=== PATIENT | female | born 1970 ===

== ENCOUNTER 2017-08-29 05:31 | Emergency (ER) | payer OTHER ==
[2017-08-29 05:47] VITALS: BMI 34.3
[2017-08-29] MEDS ORDERED: Sodium Chloride 0.9% 1,000 ML IV STA (05:49)
[2017-08-29] MEDS ORDERED: Dexamethasone 10 MG in Sodium Chloride 0.9% 50 ML IV STA (05:49)
--- NOTE | 2017-08-29 06:11 | ED PDOC ---
HPI: CCC, URI, Sore Throat Time Seen by Provider: 08/29/17 05:33 Chief Complaint (Nursing): ENT Problem Chief Complaint (Provider): Sore throat History Per: Patient History/Exam Limitations: no limitations Onset/Duration Of Symptoms: Days (3 weeks) Current Symptoms Are (Timing): Still Present Location Of Pain: Throat Associated Symptoms: denies: Fever Severity: Mild Additional History Per: Patient Additional Complaint(s): 47 y/o female with a hx of Lupus, fibromyalgia, and HTN, c/o sore throat for 3 weeks. Patient was seen at [facility] for the same complaint and reports finishing his course of amoxicillin. Patient notes no improvement of symptoms and now c/o having trouble swallowing with vocal changes. Patient had fever before, but denies fever at this moment. Past Medical History Reviewed: Historical Data, Nursing Documentation, Vital Signs Vital Signs: Last Vital Signs Temp 98.9 F 08/29/17 05:47 Pulse 95 H 08/29/17 05:47 Resp 16 08/29/17 05:47 BP 150/100 H 08/29/17 05:47 Pulse Ox 100 08/29/17 06:51 - Medical History PMH: Arthritis ("PSORIATIC ARTHRITIS"), Depression, Fibromyalgia, HTN, Rheumatoid Arthritis Denies: Chronic Kidney Disease - Family History Family History: States: No Known Family Hx - Social History Current smoker - smoking cessation education provided: No Drugs: Denies - Immunization History Hx Tetanus Toxoid Vaccination: No Hx Influenza Vaccination: No Hx Pneumococcal Vaccination: No - Home Medications Home Medications: Ambulatory Orders Medication Instructions Recorded DULoxetine [Cymbalta] 30 mg PO DAILY 04/04/17 Gabapentin [Neurontin] 300 mg PO HS 04/04/17 Hydroxychloroquine Sulfate 200 mg PO Q12 04/04/17 Lisinopril [Zestril] 20 mg PO DAILY 04/04/17 Meloxicam 7.5 mg PO DAILY 04/04/17 Ketorolac Tromethamine [Toradol] 10 mg PO TID PRN #15 tab 08/20/17 - Allergies Allergies/Adverse Reactions: Allergies Allergy/AdvReac Type Severity Reaction Status Date / Time acetaminophen [From Vicodin] AdvReac Severe VOMITING Verified 08/29/17 05:47 hydrocodone bitartrate AdvReac Severe VOMITING Verified 08/29/17 05:47 [From Vicodin] Review of Systems ROS Statement: Except As Marked, All Systems Reviewed And Found Negative Constitutional: Negative for: Fever ENT: Positive for: Throat Pain, Other (Throuble swallowing) Physical Exam - Reviewed Nursing Documentation Reviewed: Yes Vital Signs Reviewed: Yes - Physical Exam Appears: Positive for: Well, Non-toxic, No Acute Distress Head Exam: Positive for: ATRAUMATIC, NORMAL INSPECTION, NORMOCEPHALIC Skin: Positive for: Normal Color, Warm, DRY ENT: Positive for: Tonsillar Exudate, Tonsillar Swelling (Bilateral 3+ tonsils) , Other (Dry mucous membrane) Neck: Positive for: Supple Cardiovascular/Chest: Positive for: Regular Rate, Rhythm. Negative for: Murmur Respiratory: Positive for: Normal Breath Sounds. Negative for: Rales, Rhonchi, Wheezing Lymphatic: Positive for: Adenopathy (Bilateral anterior cervical adenapathy) Neurologic/Psych: Positive for: Alert, Oriented - ECG O2 Sat by Pulse Oximetry: 100 (RA) Pulse Ox Interpretation: Normal Medical Decision Making Medical Decision Making: Impression: * 47 y/o female c/o sore throat for 3 weeks. Plans: * Blood labs * Toradol * IV fluids * Serology DDx: Previous diagnosis of tonsillitis. 07:00. Patient turned over to Sr. Mary. Scribe Attestation: Documented by Anika Hernandez, acting as a scribe for Kaden Pederson. Provider Scribe Attestation: All medical record entries made by the Scribe were at my direction and personally dictated by me. I have reviewed the chart and agree that the record accurately reflects my personal performance of the history, physical exam, medical decision making, and the department course for this patient. I have also personally directed, reviewed, and agree with the discharge instructions and disposition. Disposition - Clinical Impression Clinical Impression: Tonsillitis - Patient ED Disposition Is Patient to be Admitted: Transfer of Care - Disposition Disposition: Transfer of Care Disposition Time: 07:00 Condition: FAIR Forms: [employer] ([place]i) Patient Signed Over To: Donna Mary
--- NOTE | 2017-08-29 07:01 | ED PDOC ---
- Laboratory Results Result Diagrams: 08/29/17 06:05 08/29/17 06:05 - ECG O2 Sat by Pulse Oximetry: 100 (RA) Pulse Ox Interpretation: Normal Medical Decision Making Medical Decision Makin:00 Patient signed over from Kaden Pederson MD pending CT, labs, and reevaluation. Scribe Attestation: Documented by Maria Eugenia Richardson, acting as a scribe for Donna Mary MD. Provider Scribe Attestation: All medical record entries made by the Scribe were at my direction and personally dictated by me. I have reviewed the chart and agree that the record accurately reflects my personal performance of the history, physical exam, medical decision making, and the department course for this patient. I have also personally directed, reviewed, and agree with the discharge instructions and disposition. 10.30a CT report reviewed. Labs reviewed. Patient made aware of results. She feels better. Will discharge. Disposition Doctor Will See Patient In The: Office Counseled Patient/Family Regarding: Diagnosis, Need For Followup, Rx Given (lid) - Clinical Impression Clinical Impression: Tonsillitis - POA Present On Arrival: None - Disposition Referrals: Sunil Trivedi MD [Staff Provider] - Disposition: Routine/Home Disposition Time: 10:30 Condition: IMPROVED Prescriptions: Lidocaine 2% Viscous 10 ml MM Q4H PRN #1 bottle PRN Reason: Sore Throat Instructions: Tonsillitis (ED) Forms: [employer] ([place]er)
[2017-08-29 07:15] LABS: BASO # 0.1 K/uL (0.0-0.2); BASO % 0.5 % (0.0-2.0); EOS % 0.3 % (0.0-4.0); HEMATOCRIT 34.4 % (34.0-47.0); LYMPH # 2.4 K/uL (1.0-4.3); LYMPH % 21.2 % (20.0-40.0); MEAN CELL VOLUME 79.9 fl (81.0-99.0); MEAN CORPUSCULAR HEMOGLOBIN 25.7 pg (27.0-31.0); MEAN CORPUSCULAR HGB CONC 32.1 g/dL (33.0-37.0); MEAN PLATELET VOLUME 7.6 fl (7.2-11.7); MONO # 0.8 K/uL (0.0-0.8); MONO % 7.1 % (0.0-10.0); NEUT % 70.9 % (50.0-75.0); NRBC % 0.1 % (0.0-0.0); RED CELL DISTRIBUTION WIDTH 15.9 % (11.5-14.5); WHITE BLOOD COUNT 11.3 K/uL (4.8-10.8)
[2017-08-29 07:18] LABS: ALB/GLOB RATIO 1.1 (1.0-2.1); ALKALINE PHOSPHATASE 100 U/L (38-126); ALT/SGPT 19 U/L (9-52); AST/SGOT 40 U/L (14-36); BILIRUBIN,TOTAL 0.6 mg/dl (0.2-1.3); BLOOD UREA NITROGEN 12 mg/dl (7-17); CARBON DIOXIDE 23 mmol/L (22-30); CHLORIDE 106 mmol/L (98-107); GFR AFRICAN-AMERICAN > 60; GLUCOSE,RANDOM 99 mg/dL (65-105); POTASSIUM 4.1 MMOL/L (3.6-5.0); SODIUM 140 mmol/l (132-148); TOTAL PROTEIN 8.2 G/DL (6.3-8.2)
[2017-08-29 07:43] LABS: CALCIUM 8.8 mg/dL (8.4-10.2)
[2017-08-29] MEDS ORDERED: Sodium Chloride 0.9% 50 ML IV ONE (08:41)
[2017-08-29] MEDS ORDERED: Iohexol 300 100 ML IJ ONE (08:41)
--- NOTE | 2017-08-29 09:25 | CT ---
PROCEDURE: CT NECK WITH CONTRAST HISTORY: throat pain COMPARISON: None TECHNIQUE: CT of the neck with intravenous contrast. Coronal and sagittal reformats generated. Intravenous contrast dose: 80 cc of Omni 300 Radiation dose: DLP 377 mGy-cm This CT exam was performed using one or more of the following dose reduction techniques: Automated exposure control, adjustment of the mA and/or kV according to patient size, and/or use of iterative reconstruction technique. FINDINGS: NASOPHARYNX: Unremarkable. SUPRAHYOID NECK: There is swelling of the palatine tonsils. There is no evidence of tonsillar abscess. INFRAHYOID NECK: Unremarkable larynx, hypopharynx, and supraglottic space. Vocal cords intact. No evidence of epiglottitis MASS: None. GLANDS: Parotid and submandibular glands unremarkable. Normal size thyroid gland, without nodule. LYMPH NODES: There is mild bilateral cervical adenopathy. CERVICAL SPINE: No fracture or focal lesion. VASCULAR STRUCTURES: Unremarkable. OTHER FINDINGS: None. IMPRESSION: Swelling of the palatine tonsils with no evidence of abscess. No evidence of epiglottitis. Mild bilateral cervical adenopathy
[2017-08-29 10:42] VITALS: BP 135/92; PULSE 86; RESP 18; TEMP 98.2
[2017-08-29 10:53] VITALS: O2SAT 100
== END 2017-08-29 11:09 | disposition home or self-care (01) ==
LOC: H.ER 05:31
DX: J03.90 Acute tonsillitis, unspecified (principal); F32.9 Major depressive disorder, single episode, unspecified; I10 Essential (primary) hypertension; M06.9 Rheumatoid arthritis, unspecified; M79.7 Fibromyalgia
CPT/HCPCS: 70491; 80053; 81025; 85025; 86308; 87040; 87070; 87430; 87804; 96365; 96375; 99284; J1100; J1885; J7040; Q9967